=== PATIENT | female | born 1945 | race Caucasian/White ===

== ENCOUNTER → 2025-01-09 13:45 | Outpatient (REF) | payer OTHER, SELFPAY | LOC: RCS 13:45 | PROVIDERS: ATTENDING PHYSICIAN Student in an Organized Health Care Education/Training Program; FAMILY PHYSICIAN Nurse Practitioner Family | DX: I35.0 Nonrheumatic aortic (valve) stenosis (principal) | CPT/HCPCS: 93306 ==